=== PATIENT | male | born 1940 | race Caucasian/White ===

== ENCOUNTER 2019-12-11 12:01 | Emergency (ER) | payer MEDICARE, OTHER ==
[2019-12-11] MEDS ORDERED: Sodium Chloride 0.9% 10 ML Syringe FLUSH PRN (12:05)
--- NOTE | 2019-12-11 12:05 | EDM.PDOC ---
ED HPI GENERAL MEDICAL PROBLEM - General Chief Complaint: Laceration Stated Complaint: Head Injury Time Seen by Provider: 12/11/19 12:01 Source of Information: Reports: Patient, EMS, Family (; daughter Melissa). Denies: EMS Notes Reviewed (Not available at time of dictation), Old Records (No [facility] records available) History Limitations: Reports: Other (Severe presbycusis) - History of Present Illness INITIAL COMMENTS - FREE TEXT/NARRATIVE: The patient was brought to the emergency room via ambulance with furniture assembler accompaniment with dressing applied prior to arrival to our facility. Note that the patient was helping his daughter at her home cutting some tree limbs when a large limb fell and hit his left ear resulting in a severe laceration and an about 1 minute period of loss of consciousness and was followed by a 1-2-minute episode of grand mal seizures without urinary or stool incontinence, and subsequent about 5-minute period of postictal sedation. The accident and the seizures, etc. were observed by his and daughter. The patient does not have a previous history of seizures or head concussions, however note history of moderate to severe thrombocytopenia as below, which is currently in an observation program. The patient denies any chest pain/pressure, heart flutter, dizziness, orthostasis, orthopnea, diaphoresis, paresthesias, recent decreased exercise tolerance, or any other anginal-type symptoms. No recent history of abdominal pain, heartburn, nausea, diarrhea, melena, gross hematochezia, or any food intolerance, including fatty foods, etc.. The patient also denies any recent fever, cough, wheezing, dyspnea, etc.. No history of recent headaches, visual changes, diplopia, or other change in neurological status. He denies any significant pain or discomfort. Onset: Today, Sudden Onset Date: 12/11/19 Onset Time: 11:10 Duration: Improving Location: Reports: Head Improves with: Reports: None Worsens with: Reports: None Context: Reports: Other (As above). Denies: Sick Contact, Trauma Associated Symptoms: Reports: Confusion, Seizure. Denies: Chest Pain, Cough, Diaphoresis, Fever/Chills, Headaches, Loss of Appetite, Malaise, Nausea/Vomiting, Rash, Shortness of Breath, Syncope, Weakness Treatments BLOCKER POLISHING: Reports: Dressing(s) - Related Data Allergies Allergy/AdvReac Type Severity Reaction Status Date / Time No Known Allergies Allergy Verified 12/11/19 12:53 Home Meds: Home Meds Docusate Sodium [Stool Softener] 1 tab PO BID 12/11/19 [History] Lutein/Minerals/Vit A,C & E [I-Shekhar] 1 tab PO BID 12/11/19 [History] Naproxen Sodium [Aleve] 1 tab PO BID PRN 12/11/19 [History] Past Medical History HEENT History: Reports: Cataract, Hard of Hearing, Impaired Vision, Macular Degeneration, Other (See Below). Denies: Allergic Rhinitis, Glaucoma, Otitis Media, Retinal Detachment Other HEENT History: Patient wears glasses. Current intraocular injections bilaterally for his macular degeneration. Severe bilateral presbycusis with bilateral hearing aid therapy. Cardiovascular History: Reports: None. Denies: Afib, Aneurysm, Arrhythmia, Blood Clots/VTE/DVT, CAD, Cardiomyopathy, Heart Failure, Heart Murmur, High Cholesterol, Hypertension, ID, PVD, Syncope Respiratory History: Reports: None. Denies: Asthma, COPD, Cystic Fibrosis, PE, Pneumothorax, Sleep Apnea, TB Gastrointestinal History: Reports: None. Denies: Celiac Disease, Cholelithiasis, Diverticulosis, Fecal Incontinence, Gastritis, GERD, GI Bleed, Hepatitis, Inflammatory Bowel Disease, Irritable Bowel Syndrome, Jaundice, PUD Genitourinary History: Reports: BPH. Denies: Acute Renal Failure, Chronic Renal Insuffiency, Renal Calculus, Retention, Urinary, STD, Urinary Incontinence, UTI, Recurrent Musculoskeletal History: Reports: Amputation, Arthritis, Back Pain, Chronic, Fracture, Osteoarthritis, Other (See Below). Denies: Gout, Neck Pain, Chronic, RA, SLE Other Musculoskeletal History: Partial amputation of the distal phalanx of digit #3 of the right hand secondary to a lawnmower accident at age 2. Phalangeal fracture of digit #5 of the right hand in 2018. Fracture of digit #2 of the left hand in the 1980s. Neurological History: Reports: None. Denies: Alzheimers Disease, Cerebral Aneurysms, Concussion, CVA, Headaches, Chronic, Head Trauma, Migraines, MS, Parkinson's, Seizure, TIA, Vertigo Psychiatric History: Reports: None. Denies: Abuse, Victim of, ADD, ADHD, Addiction, Alzheimers Disease, Anxiety, Dementia, Depression, Mood Swings, Psych Hospitalization(s), PTSD, Suicide Attempt, Suicidal Ideation Endocrine/Metabolic History: Denies: Diabetes, Type I, Diabetes, Type II, Diabetes Mellitus, Type 3c, Hypothyroidism, IDDM Hematologic History: Reports: Other (See Below) Other Hematologic History: Thrombocytopenia. Immunologic History: Reports: None. Denies: AIDS, HIV, SLE Oncologic (Cancer) History: Reports: Malignant Melanoma, Prostate, Other (See Below). Denies: Basal Cell Carcinoma, Colon, Hodgkin's Lymphoma, Leukemia, Metastatic, Non-Hodgkin's Lymphoma Other Oncologic History: Possible melanoma of the mid back region in 2015. Precancerous versus prostate cancer in 2017 with prostatectomy as below. Dermatologic History: Reports: Melanoma, Other (See Below). Denies: Benign Melanoma, Eczema, Psoriasis, Seborrheic Dermatitis Other Dermatologic History: Melanoma as above. Rhinophyma. - Infectious Disease History Infectious Disease History: Reports: Chicken Pox, Measles. Denies: C-Difficile, Meningitis, Mononucleosis, MRSA, Mumps, Pertussis (Whooping Cough), Rheumatic Fever, Rubella, Scarlet Fever, Shingles, TB, VRE - Past Surgical History Head Surgeries/Procedures: Reports: None HEENT Surgical History: Reports: Cataract Surgery, Laser Surgery, Other (See Below). Denies: Adenoidectomy, Eye Surgery, LASIK, Naso-Sinus Surgery, Oral Surgery, Tonsillectomy Other HEENT Surgeries/Procedures: Bilateral cataract surgery in 2018 with YAG bilaterally therapy in 2019. Cardiovascular Surgical History: Reports: None. Denies: Varicose Respiratory Surgical History: Reports: None. Denies: Thoracentesis GI Surgical History: Reports: Colonoscopy, Other (See Below). Denies: Appendectomy, Cholecystectomy, EGD, Hernia, Abdominal, Hernia, Inguinal, Hernia Repair/Other, Polypectomy Other GI Surgeries/Procedures: Colonoscopy in 2016. Male Surgical History: Reports: Circumcision, Prostatectomy, Other (See Below). Denies: Vasectomy Other Male Surgeries/Procedures: Circumcision as an . Prostatectomy without orchidectomy in November 2016 secondary to precancerous/prostate cancer. Endocrine Surgical History: Reports: None. Denies: Thyroidectomy Neurological Surgical History: Reports: None. Denies: C-Spine, Discectomy, Laminectomy, Lumbar Spine, Sacral Spine, Spinal Fusion, Thoracic Spine, Vertebroplasty Musculoskeletal Surgical History: Reports: Amputation, Joint Replacement, Knee Replacement, Other (See Below). Denies: Arthroscopic Procedure, Carpal Tunnel, Ganglion Cyst, ORIF, Shoulder Surgery Other Musculoskeletal Surgeries/Procedures:: Partial amputation repair at age 2 of digit #3 of the right hand as above. Bilateral total knee arthroplasty in March 2013. Oncologic Surgical History: Reports: Other (See Below) Other Oncologic Surgeries/Procedures: Excision of melanoma as below. Dermatological Surgical History: Reports: Other (See Below) (Excision of melanoma from the mid back region in 2014.) Social & Family History - Tobacco Use Smoking Status *Q: Former Smoker Tobacco Use Within Last Twelve Months: No Years of Tobacco use: 15 Packs/Tins Daily: 0.5 Packs/Tins Daily Comment: Smoked between ages 14 and 29. Used Tobacco, but Quit: Yes Smoking Cessation Information Provided To Patient: No Second Hand Smoke Exposure: No Second Hand Smoke Education Provided: No - Caffeine Use Caffeine Use: Reports: Coffee (1 cup/day). Denies: Energy Drinks, Soda, Tea - Alcohol Use Alcohol Use History: Yes Days Per Week of Alcohol Use: 4 Number of Drinks Per Day: 1 Number of Drinks Per Day Comment: Usually beer or wine. No previous DWIs, problems with alcohol abuse, etc. Total Drinks Per Week: 4 Alcohol Use in Last Twelve Months: Yes - Recreational Drug Use Recreational Drug Use: No Drug Use in Last 12 Months: No Recreational Drug Type: Denies: Amphetamines (Speed), Cocaine, Heroin, Inhalants (Glues, Solvents, Aerosols), LSD (Acid), Marijuana/Hashish, Methamphetamine, Morphine, Oxycodone - Living Situation & Occupation Living situation: Reports: (1962. 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 Also previously worked part-time as a [employer]. 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 ED EXAM, SKIN/RASH Exam: See Below Exam Limited By: No Limitations General Appearance: Alert, WD/WN, No Apparent Distress Eye Exam: Bilateral Eye: EOMI, Normal Fundi, Normal Inspection (No nystagmus. The patient does not have his glasses.), PERRL Ears: Normal TMs, Hearing Loss (Severe laceration of the left auricle including probable ear canal involvement with some mild bleeding from the ear canal. Severe presbycusis with the patient not having his hearing aids.), Other (2 cm irregular severe laceration through and through of the mid left auricle with additional 1 cm retro-auricular laceration and small 0.5 cm laceration over the distal inferior aspect of the left EAC.). 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 No: Nasal Deformity (Rhino female), Nasal Swelling Throat/Mouth: Normal Inspection, Normal Lips, Normal Teeth, Normal Gums, Normal Oropharynx, Normal Voice, No Airway Compromise. No: Dysphagia, Perioral Cyanosis Head: Atraumatic, Normocephalic. No: Facial Swelling, Facial Tenderness, Sinus Tenderness Neck: Normal Inspection, Supple, Non-Tender, Full Range of Motion, Carotid Bruit (Mild bilateral carotid bruits). No: Lymphadenopathy (L), Lymphadenopathy (R), Thyromegaly Respiratory/Chest: No Respiratory Distress, Lungs Clear, Normal Breath Sounds, No Accessory Muscle Use, Chest Non-Tender. No: Pleural Rub, Retractions Cardiovascular: Normal Peripheral Pulses, Regular Rate, Rhythm, No Edema, No Gallop, No JVD, No Murmur, No Rub. No: Gallop/S3, Gallop/S4, Friction Rub Peripheral Pulses: 2+: Radial (L), Radial (R), Dorsalis Pedis (L), Dorsalis Pedis (R) GI/Abdominal: Normal Bowel Sounds, Soft, Non-Tender, No Organomegaly, No Distention, No Abnormal Bruit, No Mass, Pelvis Stable. No: Guarding (Male) Exam: Deferred Rectal (Males) Exam: Deferred Back Exam: Normal Inspection, Full Range of Motion. No: CVA Tenderness (L), CVA Tenderness (R), Muscle Spasm Extremities: Normal Range of Motion, Non-Tender, No Pedal Edema, Normal Capillary Refill, Other (Finger deformities of digit #3 and 5 of the right hand secondary to previous amputation and fracture as above. Additional finger deformity of digit #2 of the left hand secondary to previous fracture. No evidence of acute injury.). No: Tirso's Sign Neurological: Alert, Oriented, CN II-XII Intact, Normal Cognition, Normal Gait, Normal Reflexes (Negative Babinski's, finger to nose, and pronator rotation tests. No evidence of facial paresis, tongue deviation, orthostasis, etc.. Excellent reverse thought processes.), No Motor/Sensory Deficits Psychiatric: Normal Affect, Normal Mood Skin: Ecchymosis (Moderate ecchymosis of the forearms bilaterallystable and chronic by patient history), Wound/Incision (Left auricle as above). No: Diaphoretic Location, Skin: Head Characteristics: Other (Left ear and auricle as above) Associated features: Tenderness (Mild at laceration site) Lymphatic: No Adenopathy Course - Vital Signs Last Recorded V/S: Last Vital Signs Temp 36.3 C 12/11/19 13:43 Pulse 58 L 12/11/19 14:15 Resp 16 12/11/19 14:15 BP 162/64 H 12/11/19 14:15 Pulse Ox 97 12/11/19 14:15 Vital Signs - 24 hr 12/11/19 12/11/19 12/11/19 12:14 12:30 12:42 Temperature [ 36.4 C Oral] Pulse, 65 64 62 Peripheral [ Left Pulse Oximetry] Respiratory 20 16 18 Rate Blood Pressure 145/71 H 158/60 H 151/61 H [Left Upper Arm ] O2 Sat by Pulse 98 98 99 Oximetry 12/11/19 12/11/19 12/11/19 13:12 13:43 14:15 Temperature [ 36.3 C Oral] Pulse, 58 L 62 58 L Peripheral [ Left Pulse Oximetry] Respiratory 20 16 16 Rate Blood Pressure 156/66 H 151/62 H 162/64 H [Left Upper Arm ] O2 Sat by Pulse 98 97 97 Oximetry - Orders/Labs/Meds Orders: Active Orders 24 hr Category Date Time Status Cardiac Monitoring [RC] STAT Care 12/11/19 12:05 Active Communication Order [RC] PER UNIT ROUTINE Care 12/11/19 12:05 Active Oxygen Therapy, ED [RC] PRN Care 12/11/19 12:05 Active Peripheral IV Care [RC] . DIRECTED Care 12/11/19 12:05 Active Pulse Oximetry [RC] CONTINUOUS Care 12/11/19 12:05 Active Up With Assistance [RC] ASDIRECTED Care 12/11/19 12:05 Active Vaccines to be Administered [RC] PER UNIT ROUTINE Care 12/11/19 12:07 Active Vital Signs [RC] PFP Care 12/11/19 12:05 Active Nothing per Oral Now Diet [DIET] Diet 12/11/19 Breakfast Active Head wo Cont [CT] Stat Exams 12/11/19 12:05 Taken PROLACTIN [REF] Stat Lab 12/11/19 12:25 Received Sodium Chloride 0.9% [Saline Flush] Med 12/11/19 12:05 Active 10 ml FLUSH ASDIRECTED PRN Obtain Past Medical Record [OM.PC] Stat Oth 12/11/19 12:05 Active Peripheral IV Insertion Adult [OM.PC] Stat Oth 12/11/19 12:05 Ordered Resuscitation Status Stat Resus Stat 12/11/19 12:05 Ordered Medication Orders Sodium Chloride (Saline Flush) 10 ml FLUSH ASDIRECTED PRN PRN Reason: Keep Vein Open Labs: Laboratory Tests 12/11/19 12/11/19 12/11/19 Range/Units 12:25 12:25 12:25 WBC 5.6 (4.0-10.2) K/uL RBC 4.89 (4.33-5.41) M/uL Hgb 14.5 (13.1-16.8) g/dL Hct 44.3 (39.0-49.0) % MCV 90.6 (84.0-98.0) fL MCH 29.7 (28.2-33.3) pg MCHC 32.7 (31.7-36.0) g/dL RDW 15.3 H (11.2-14.1) % Plt Count 44 L* (150-350) K/uL Neut % (Auto) 81.3 H (45.0-80.0) % Lymph % (Auto) 10.3 (10.0-50.0) % Payne % (Auto) 6.9 (2.0-14.0) % Eos % (Auto) 1.1 (0.0-5.0) % Baso % (Auto) 0.4 (0.0-2.0) % Neut # (Auto) 4.57 (1.40-7.00) K/uL Lymph # (Auto) 0.58 (0.50-3.50) K/uL Payne # (Auto) 0.39 (0.00-1.00) K/uL Eos # (Auto) 0.06 (0.00-0.50) K/uL Baso # (Auto) 0.02 (0.00-0.20) K/uL PT 10.9 (9.5-12.0) SEC INR 1.1 APTT 27.9 (24.5-32.8) SEC Sodium 143 (136-145) mmol/L Potassium 3.8 (3.5-5.1) mmol/L Chloride 108 H (98-107) mmol/L Carbon Dioxide 23.7 (21.0-32.0) mmol/L BUN 29 H (7-18) mg/dL Creatinine 0.87 (0.51-1.17) mg/dL Est Cr Clr Drug Dosing TNP Estimated GFR (MDRD) > 60 mL/min Glucose 90 (74-106) mg/dL Lactic Acid (0.4-2.0) mmol/L Calcium 8.5 (8.5-10.1) mg/dL Magnesium 1.8 (1.8-2.4) mg/dL Total Bilirubin 0.6 (0.2-1.0) mg/dL AST 23 (15-37) U/L ALT 25 (12-78) U/L Alkaline Phosphatase 101 (46-116) IU/L Total Protein 6.3 L (6.4-8.2) g/dL Albumin 3.2 L (3.4-5.0) g/dL 12/11/19 Range/Units 12:25 WBC (4.0-10.2) K/uL RBC (4.33-5.41) M/uL Hgb (13.1-16.8) g/dL Hct (39.0-49.0) % MCV (84.0-98.0) fL MCH (28.2-33.3) pg MCHC (31.7-36.0) g/dL RDW (11.2-14.1) % Plt Count (150-350) K/uL Neut % (Auto) (45.0-80.0) % Lymph % (Auto) (10.0-50.0) % Payne % (Auto) (2.0-14.0) % Eos % (Auto) (0.0-5.0) % Baso % (Auto) (0.0-2.0) % Neut # (Auto) (1.40-7.00) K/uL Lymph # (Auto) (0.50-3.50) K/uL Payne # (Auto) (0.00-1.00) K/uL Eos # (Auto) (0.00-0.50) K/uL Baso # (Auto) (0.00-0.20) K/uL PT (9.5-12.0) SEC INR APTT (24.5-32.8) SEC Sodium (136-145) mmol/L Potassium (3.5-5.1) mmol/L Chloride (98-107) mmol/L Carbon Dioxide (21.0-32.0) mmol/L BUN (7-18) mg/dL Creatinine (0.51-1.17) mg/dL Est Cr Clr Drug Dosing Estimated GFR (MDRD) mL/min Glucose (74-106) mg/dL Lactic Acid 1.7 (0.4-2.0) mmol/L Calcium (8.5-10.1) mg/dL Magnesium (1.8-2.4) mg/dL Total Bilirubin (0.2-1.0) mg/dL AST (15-37) U/L ALT (12-78) U/L Alkaline Phosphatase (46-116) IU/L Total Protein (6.4-8.2) g/dL Albumin (3.4-5.0) g/dL Prolactin level drawn with results pending. Meds: Medications Generic Name Dose Route Start Last Admin Trade Name Freq PRN Reason Stop Dose Admin Sodium Chloride 10 ml 12/11/19 12:05 Saline Flush FLUSH ASDIRECTED PRN Keep Vein Open Discontinued Medications Generic Name Dose Route Start Last Admin Trade Name Freq PRN Reason Stop Dose Admin Diphtheria/Tetanus/Acell Pertussis 0.5 ml 12/11/19 12:07 12/11/19 12:46 Adacel IM 12/11/19 12:08 0.5 ml .ONCE ONE Administration Lidocaine HCl 5 ml 12/11/19 12:07 12/11/19 13:19 Xylocaine-Mpf 1% INJECT 12/11/19 12:08 Not Given ONETIME ONE Lidocaine HCl 5 ml 12/11/19 12:07 12/11/19 13:19 Xylocaine-Mpf 1% INJECT 12/11/19 12:08 Not Given ONETIME ONE Neomycin/Polymyxin/Bacitracin 1 each 12/11/19 12:06 12/11/19 13:19 Triple Antibiotic Oint TOP 12/11/19 12:07 Not Given ONETIME ONE - Radiology Interpretation Free Text/Narrative:: 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 CT of the head without contrast shows no evidence of acute injury, including in the mastoid region, etc.. No evidence of intracerebral hemorrhage, bleed, fracture, etc. Preliminary verbal report was not received from the radiology department at [facility] despite our previous request. Departure - Departure Time of Disposition: 15:10 Disposition: DC/Tfer to Acute Hospital 02 Condition: Fair Clinical Impression: Laceration, Bradycardia, Thrombocytopenia, Elevated blood pressure reading, Hyp oalbuminemia Head trauma Qualifiers: Encounter type: initial encounter Qualified Code(s): S09.90XA - Unspecified injury of head, initial encounter Osteoarthritis Qualifiers: Osteoarthritis location: multiple joints Osteoarthritis type: primary Qualified Code(s): M89.49 - Other hypertrophic osteoarthropathy, multiple sites - Discharge Information *PRESCRIPTION DRUG MONITORING PROGRAM REVIEWED*: Not Applicable *COPY OF PRESCRIPTION DRUG MONITORING REPORT IN PATIENT MELITON: Not Applicable Referrals: PCP,Not In Area [Primary Care Provider] - Forms: ED Department Discharge, Interfacility Transfer [facility] Sepsis Event Note (ED) - Focused Exam Vital Signs: Vital Signs Temp Pulse Resp BP Pulse Ox 12/11/19 14:15 58 L 16 162/64 H 97 12/11/19 13:43 36.3 C 62 16 151/62 H 97 12/11/19 13:12 58 L 20 156/66 H 98 12/11/19 12:42 62 18 151/61 H 99 12/11/19 12:30 64 16 158/60 H 98 12/11/19 12:14 36.4 C 65 20 145/71 H 98 - Problem List & Annotations (1) Head trauma SNOMED Code(s): 87965860 Code(s): S09.90XA - UNSPECIFIED INJURY OF HEAD, INITIAL ENCOUNTER Status: Acute Priority: High Current Visit: Yes Onset Date: 12/11/19 Annotation/Comment:: Secondary to mechanism of injury a trauma code was considered immediately at the time of the patient's arrival to the emergency room, however secondary to clinical history, patient presentation, patient's initial primary screening physical examination, etc. this provider did not feel that a trauma code was warranted with no effect in the level or quality of the patient's care. Note new witnessed grand mal seizure with prolactin level drawn with results pending. Postictal sedation resolved at time of patient's arrival to this facility with no neurological deficits during the entire emergency room care. Telephone consultation at 13:[address] Gordon, emergency room physician at [facility], who does accept the patient for further treatment and evaluation, with no further treatment recommendations given. Ambulance transfer with furniture assembler accompaniment. Physical exam and vital signs were stable at time of transfer. The family and patient are aware that he may need to be admitted for further observation and treatment especially in light of his thrombocytopenia, etc. Note delay of patient transfer secondary to lack of ambulance availability without sequelae. Qualifiers: Encounter type: initial encounter Qualified Code(s): S09.90XA - Unspecified injury of head, initial encounter (2) Grand mal seizure SNOMED Code(s): 34167610 Code(s): G40.409 - OTH GENERALIZED EPILEPSY, NOT INTRACTABLE, W/O STAT EPI Status: Acute Priority: High Current Visit: Yes Onset Date: 12/11/19 Annotation/Comment:: Grand mal seizure secondary to head trauma. No recurrence during emergency room care. Further work-up by accepting providers depending on his clinical course. Prolactin level was drawn with results pending. (3) Laceration SNOMED Code(s): 418354794 Code(s): JAN5645 - Status: Acute Priority: High Current Visit: Yes Onset Date: 12/11/19 Annotation/Comment:: Secondary to severity of laceration, including possible involvement of the distal EAC, this laceration will likely need to be repaired by an ENT. Ambulance transfer secondary to head trauma as above. TDAP was given. New wound dressing applied by the nurse prior to patient transfer. (4) Bradycardia SNOMED Code(s): 74441077 Code(s): R00.1 - BRADYCARDIA, UNSPECIFIED Status: Acute Priority: Medium Current Visit: Yes Onset Date: 12/11/19 Annotation/Comment:: Note mild borderline occasional bradycardia with no chest pain or anginal type symptoms. Transfer with telemetry. Observe for now. (5) Elevated blood pressure reading SNOMED Code(s): 52540080 Code(s): R03.0 - ELEVATED BLOOD-PRESSURE READING, W/O DIAGNOSIS OF HTN Status: Acute Priority: Medium Current Visit: Yes Onset Date: 12/11/19 Annotation/Comment:: Elevated blood pressure likely secondary to current trauma. No previous history of hypertension. Observe for now. (6) Osteoarthritis SNOMED Code(s): 473716762 Code(s): M19.90 - UNSPECIFIED OSTEOARTHRITIS, UNSPECIFIED SITE Status: Chronic Priority: Medium Current Visit: Yes Annotation/Comment:: Otherwise stable by history with no evidence of other significant injury. Qualifiers: Osteoarthritis location: multiple joints Osteoarthritis type: primary Qualified Code(s): M89.49 - Other hypertrophic osteoarthropathy, multiple sites (7) Thrombocytopenia SNOMED Code(s): 950556516 Code(s): D69.6 - THROMBOCYTOPENIA, UNSPECIFIED Status: Chronic Priority: High Current Visit: Yes Annotation/Comment:: Noted to moderate thrombocytopenia currently in an observation program. Note head injury as above. By his history his platelets were 77 three weeks ago and are 44 currently. (8) Hypoalbuminemia SNOMED Code(s): 863497698 Code(s): E88.09 - OTH DISORDERS OF PLASMA-PROTEIN METABOLISM, NEC Status: Acute Priority: Medium Current Visit: Yes Onset Date: 12/11/19 Annotation/Comment:: Observe for now. (9) PVC (premature ventricular contraction) SNOMED Code(s): 84085727 Code(s): I49.3 - VENTRICULAR PREMATURE DEPOLARIZATION Status: Acute Priority: Medium Current Visit: Yes Onset Date: 12/11/19 Annotation/Comment:: Nonsymptomatic. Observe for now. - Problem List Review Problem List Initiated/Reviewed/Updated: Yes - My Orders Last 24 Hours: My Active Orders 12/11/19 Breakfast Nothing per Oral Now Diet [DIET] 12/11/19 12:05 Cardiac Monitoring [RC] STAT Communication Order [RC] PER UNIT ROUTINE Oxygen Therapy, ED [RC] PRN Peripheral IV Care [RC] . DIRECTED Pulse Oximetry [RC] CONTINUOUS Up With Assistance [RC] ASDIRECTED Vital Signs [RC] PFP Head wo Cont [CT] Stat Sodium Chloride 0.9% [Saline Flush] 10 ml FLUSH ASDIRECTED PRN Obtain Past Medical Record [OM.PC] Stat Peripheral IV Insertion Adult [OM.PC] Stat Resuscitation Status Stat 12/11/19 12:07 Vaccines to be Administered [RC] PER UNIT ROUTINE 12/11/19 12:25 PROLACTIN [REF] Stat - Assessment/Plan Last 24 Hours: My Active Orders 12/11/19 Breakfast Nothing per Oral Now Diet [DIET] 12/11/19 12:05 Cardiac Monitoring [RC] STAT Communication Order [RC] PER UNIT ROUTINE Oxygen Therapy, ED [RC] PRN Peripheral IV Care [RC] . DIRECTED Pulse Oximetry [RC] CONTINUOUS Up With Assistance [RC] ASDIRECTED Vital Signs [RC] PFP Head wo Cont [CT] Stat Sodium Chloride 0.9% [Saline Flush] 10 ml FLUSH ASDIRECTED PRN Obtain Past Medical Record [OM.PC] Stat Peripheral IV Insertion Adult [OM.PC] Stat Resuscitation Status Stat 12/11/19 12:07 Vaccines to be Administered [RC] PER UNIT ROUTINE 12/11/19 12:25 PROLACTIN [REF] Stat Assessment:: As above. Plan: As above. Extensive precautions were given to the patient and his family, who are in agreement with the treatment plan. Ambulance transfer with furniture assembler accompaniment to [place] as above.
[2019-12-11] MEDS ORDERED: Bacitracin/Neomycin/Polymyxin B Oint 0.9 GM U/D Packet TOP ONE (12:06)
[2019-12-11] MEDS ORDERED: Diphtheria,Pertussis(Acell),Tetanus Vaccine 0.5 ML SDV IM ONE (12:07)
[2019-12-11 12:48] LABS: PTT,PARTIAL THROMBOPLSTIN TIME 27.9 SEC (24.5-32.8)
[2019-12-11 12:53] LABS: CHLORIDE,CL 108 mmol/L (98-107); SODIUM,NA 143 mmol/L (136-145)
== END 2019-12-11 15:10 ==
LOC: LL.ED 12:01
DX: S06.9X1A Unspecified intracranial injury with loss of consciousness of 30 minutes or less, initial encounter (principal); S01.312A Laceration without foreign body of left ear, initial encounter; S50.12XA Contusion of left forearm, initial encounter; S50.11XA Contusion of right forearm, initial encounter; Z87.891 Personal history of nicotine dependence; M89.48 Other hypertrophic osteoarthropathy, other site; R00.1 Bradycardia, unspecified; D69.6 Thrombocytopenia, unspecified; R03.0 Elevated blood-pressure reading, without diagnosis of hypertension; E88.09 Other disorders of plasma-protein metabolism, not elsewhere classified; Z23 Encounter for immunization; W20.8XXA Other cause of strike by thrown, projected or falling object, initial encounter
CPT/HCPCS: 36415; 70450; 80053; 83605; 83735; 84146; 85025; 85610; 85730; 90471; 90715; 99285-25